=== PATIENT | female | born 1990 | race Caucasian/White ===

== ENCOUNTER 2020-08-06 08:36 | Inpatient (IN) ==
[~2020-08-06 08:36] MED LIST: CEFAZOLIN 2,000 MG in SYRINGE 0 ML IV SCH; CEFAZOLIN 2000MG 2,000 MG/15 ML SYR IV SCH; CITRIC ACID/SODIUM CITRATE 15 ML UDC PO SCH; LACTATED RINGER'S 1,000 ML IV SCH
[2020-08-06] MEDS ORDERED: fentaNYL citrate 100 MCG/2 ML VIAL ONE (09:00)
[2020-08-06] MEDS ORDERED: ONDANSETRON INJ 2 MG/ML 2 ML VIAL ONE (09:00)
[2020-08-06] MEDS ORDERED: MoRPHine SULFATE PF 1 MG/ML 10 ML AMP/VIAL ONE (09:00)
[2020-08-06] MEDS ORDERED: LACTATED RINGER'S 1,000 ML IV SCH ×3 (09:00→12:42)
[2020-08-06] MEDS ORDERED: PHENYLEPHRINE 100MCG/ML 5ML SYR ONE (09:00)
[2020-08-06] MEDS ORDERED: OXYTOCIN 10 UNITS/ML VIAL ONE (09:00)
[2020-08-06 09:24] LABS: Basophils # (auto) 0.01 K/uL (0-0.2); Basophils % (auto) 0.2 %; Eosinophils # (auto) 0.09 K/uL (0-0.5); Eosinophils % (auto) 1.6 %; Hematocrit (blood only) 33.9 % (37-47); Hemoglobin 11.6 g/dL (12.0-16.0); Immature Granulocytes # (auto) 0.02 K/uL (0.00-0.02); Immature Granulocytes % (auto) 0.4 %; Lymphocytes # (auto) 1.35 K/uL (1.2-3.4); Lymphocytes % (auto) 24.2 %; Mean Corpuscular Hemoglobin 32.5 pg (25-34); Mean Platelet Volume 10.8 fL (7.4-10.4); Monocytes % (auto) 7.2 %; Neutrophils # (auto) 3.71 K/uL (1.4-6.5); Neutrophils % (auto) 66.4 %; Platelet Count 160 K/uL (130-400); RDW Coefficient of Variation 13.3 % (11.5-14.5); RDW Standard Deviation 46.5 fL (36.4-46.3); Red Blood Count 3.57 M/uL (4.2-5.4); White Blood Count 5.58 K/uL (4.8-10.8)
--- NOTE | 2020-08-06 09:24 | Anesthesiology Consultation ---
Date of Service August 06, 2020 Assessment & Plan (1) Encounter for pre-operative examination: Chart Review Chart Review: Acceptable Risk for Surgery and Patient NOT seen in Pre Admission Testing Consults Requested none History Surgery Operation Date: 08/06/20 10:30 Proposed Procedures p Section - Bj Curtis MD, FACOG Height/Weight Height: 5 ft 11 in Weight: 63.957 kg Allergies Allergy/AdvReac Type Severity Reaction Status Date / Time No Known Allergies Allergy Verified 08/03/20 09:39 Medications Home Medications Medication Instructions Recorded Confirmed Last Taken prenat.vits,manpreet,nar-jyys-bashc 1 tab PO QAM 12/30/19 08/06/20 08/05/20 08:00 breast pump #1 ea 07/19/20 08/03/20 Unknown Past Medical History Medical History Anemia hx of Exercise / Class Metabolic Activity II 4-5 Yardwork/Stairs/Walk up hill Past Family History Family History Grandmother (Maternal) Diabetes Grandfather (Paternal) Breast cancer Colorectal cancer Aunt Breast cancer Uncle Diabetes Other No family history of adverse response to anesthesia Past Surgical History Surgical History No history of previous surgery Past Anesthesia History No Hx of Anesthesia Complications and No Family Hx of Anesthesia Complications History of PONV No Hx of PONV and No Hx of Motion Sickness Social History Smoking Status: Never smoker Do You Dip or Chew Tobacco: No Hx Alcohol Use: Yes (drank PRIOR to , none during ) Alcohol type: beer, wine and hard liquor alcohol intake frequency: a few times a week Alcohol Intake Frequency Comment: drank prior to Hx Substance Use: No substance use type: does not use Physical Exam Vital Signs Last Vital Signs Pulse 62 08/06/20 08:45 BP 117/77 08/06/20 08:45 Testing Laboratory Results 08/06/20 08:58
[2020-08-06 09:36] LABS: Mean Corpuscular Hgb Conc 34.2 g/dL (32-36)
[2020-08-06 09:49] LABS: Protein Creatinine Ratio Urine 0.2 (0-0.2); Total Protein Urine Random 16.1 mg/dl (0-11.9)
--- NOTE | 2020-08-06 10:51 | History & Physical Bridge Note ---
Date of Service August 06, 2020 History & Physical Bridge Note I have examined the patient, reviewed the History & Physical and in the interval since the performance of the History & Physical I have noted the following changes of clinical significance: no changes noted
--- NOTE | 2020-08-06 10:56 | Obstetrical Progress Note ---
Date of Service August 06, 2020 Assessment & Plan Admission and Anticipated Discharge Date Admission Date: August 06, 2020 Subjective Patient confirmed breech position on bedside ultrasound in the morning of surgery Results & Data ([facility]) Vital Signs (Past 12 Hours) Vital Signs Temp Pulse Pulse Resp BP BP 08/06/20 10:10 64 118/75 08/06/20 10:08 62 117/76 08/06/20 10:06 59 L 115/76 08/06/20 10:04 61 120/76 08/06/20 10:02 63 120/84 08/06/20 10:00 59 L 118/78 08/06/20 09:58 58 L 114/74 08/06/20 09:56 64 115/75 08/06/20 09:37 97.9 F 20 08/06/20 09:28 97.9 F 62 20 117/77 08/06/20 08:45 62 117/77 PG Care Time/CCT Total # of Minutes Spent Total Time Spent with Patient: Total time spent is greater than 50% in coordination of care (as documented) at patient's floor/unit and/or counseling patient: Coding Level of Care Code None
[2020-08-06] MEDS ORDERED: NALOXONE HCL 0.4 MG/1 ML VIAL/CARP IV PRN (11:31)
[2020-08-06] MEDS ORDERED: LACTATED RINGER'S 500 ML IV PRN (11:31)
[2020-08-06] MEDS ORDERED: MoRPHine SULFATE 2 MG/ML CARP IV PRN (11:31)
[2020-08-06] MEDS ORDERED: NALOXONE HCL 0.08 MG in SYRINGE 1.8 ML IV PRN (11:31)
[2020-08-06] MEDS ORDERED: HYDROmorphone INJ 0.5 MG/0.5 ML SYR IV PRN (11:31)
[2020-08-06] MEDS ORDERED: NALOXONE HCL 1 MG in SODIUM CHLORIDE 0.9% 1000ML 1,000 ML IV PRN (11:31)
[2020-08-06] MEDS ORDERED: ONDANSETRON INJ 2 MG/ML 2 ML VIAL IV PRN (11:31)
[2020-08-06] MEDS ORDERED: ePHEDrine sulfate 50 MG/ML AMP IV PRN (11:31)
[2020-08-06] MEDS ORDERED: KETOROLAC 30 MG/ML VIAL IV PRN (11:31)
[2020-08-06] MEDS ORDERED: MoRPHine SULFATE PF 1 MG/ML 10 ML AMP/VIAL INT SPINAL ONE (11:31)
[2020-08-06] MEDS ORDERED: DiphenhydrAMINE HCL 50 MG/ML VIAL IV PRN (11:31)
[2020-08-06] MEDS ORDERED: NO NARCOTICS OR SEDATIVES SCH (11:45)
[2020-08-06] MEDS ORDERED: SODIUM CHLORIDE 0.9% 1000ML 1,000 ML IV SCH (11:45)
[2020-08-06] MEDS ORDERED: DC INTRASPINAL MORPHINE SCH (11:45)
--- NOTE | 2020-08-06 12:22 | Operative Report ---
PG Post Operative Report Pre & Post Diagnosis Operation Date: 08/06/20 10:30 Pre-Op Diagnosis: Primary Section for Breech Presentation Term Post-Op Diagnosis: Same as Preop Primary Section for breech presentation at 1141 for a viable baby girl under services of Dr Curtis. I identified the patient and participated in the time-out.: Yes Procedure Operation Date: 08/06/20 10:30 Actual Procedures p Primary Section for breech presentation - Bj Curtis MD, FACOG Surgeon Bj Curtis MD, FACOG Cigar Packer And Sorter Dr. Dickson Estimated Blood Loss 600 Findings Consistent with Post-Op Diagnosis Specimens cord gases and blood Description of Procedure Regional anesthetic was given by anesthesia patient had a Garcia catheter inserted by nursing patient was prepped and draped in supine position with a leftward tilt preoperative antibiotics were given timeout performed Pickups with teeth were used to test the skin site and it was found adequate for incision scalpel used to make a Pfannenstiel incision cutting down through subcutaneous fat through the fascia fascia was then dissected laterally with the curved Posada's fascia was released superiorly and inferiorly from the rectus muscles with the curved Posada scissors, rectus muscle split peritoneal cavity entered in a superior location. Opening enlarged to allow exposure bladder retractor placed Metzenbaums used to dissect away the bladder flap low segment transverse incision made on the uterus with scalpel entry was done bluntly with the polyethylene bag machine operator's finger hysterotomy incision extended with the polyethylene bag machine operator's finger in the usual fashion baby was delivered baby was then javi breech position was able to flex the hips and elevate the baby out of the pelvis with the help from the library circulation assistant pressing on the fundus back was then turned to anterior baby was gently pulled with a moist lap sponge both legs were out and arms were swept towards the chest and then baby was delivered without any excessive extension of the neck without excessive force live vigorous infant cord clamped and cut cord gases obtained cord blood obtained placenta removed manually within ensured all placenta removed with a moist lap sponge uterus exteriorized IV Pitocin had been started by anesthesia and uterine tone improved. The uterus was closed in 2 layers first layer and 0 Monocryl running locked second layer 0 Monocryl nonlocked after generous irrigation and suction of the cul-de-sac and bladder flap regions hemostasis was excellent uterus was placed back in the peritoneal cavity and hemostasis was excellent rectus muscles were inspected and found to be dry fascia closed with 0 Vicryl subcutaneous fat closed with 3-0 Vicryl prior to this subcutaneous fat was irrigated skin closed with 4-0 subcuticular Monocryl incision Steri-Stripped urine was clear at the end of the procedure Uterus was normal there was no septum no bicornuate uterus adnexa were normal I attest to the content of the Intraoperative Record and any orders documented therein. Any exceptions are noted below. Procedure Pre-op/Post-op diagnoses: Pre-Op/Post-Op Diagnoses Operation Date: 08/06/20 10:30 Pre-Op Diagnosis: Primary Section for Breech Presentation Term Post-Op Diagnosis: Same as Preop Primary Section for breech presentation at 1141 for a viable baby girl under services of Dr Curtis. Procedure: Procedures Operation Date: 08/06/20 10:30 Actual Procedures Side Surgeon p Primary Section for breech presentation Bj Curtis MD, FACOG
--- NOTE | 2020-08-06 12:28 | Anesthesiology Progress Note ---
Date of Service August 06, 2020 Anesthesia Post Procedure Vital Signs Vital Signs: Temp Pulse Pulse Resp BP BP Pulse Ox 08/06/20 12:25 53 L 97 08/06/20 12:24 50 L 123/79 08/06/20 11:01 67 117/78 08/06/20 10:10 64 118/75 08/06/20 10:08 62 117/76 08/06/20 10:06 59 L 115/76 08/06/20 10:04 61 120/76 08/06/20 10:02 63 120/84 08/06/20 10:00 59 L 118/78 08/06/20 09:58 58 L 114/74 08/06/20 09:56 64 115/75 08/06/20 09:37 36.6 C 20 08/06/20 09:28 36.6 C 62 20 117/77 08/06/20 08:45 62 117/77 Transfer of Care Handoff Completed per policy Notes Mental Status: alert / awake / arousable and participated in evaluation Patient Amnestic to Procedure: No Nausea / Vomiting: adequately controlled Pain: adequately controlled Airway Patency, RR, SpO2: stable & adequate BP & HR: stable & adequate Hydration State: stable & adequate Neuraxial Anesthesia: was administered and sensory block is resolving Anesthetic Complications: no major complications apparent and Pt Satisfied with anesthetic care
[2020-08-06] MEDS ORDERED: BENZOCAINE 20% AER SPR 82.5 GM CAN EXT PRN (12:42)
[2020-08-06] MEDS ORDERED: SENNA 8.6 MG TAB PO PRN (12:42)
[2020-08-06] MEDS ORDERED: DIPHTHERIA/TETANUS/PERTUSSIS 0.5 ML SYR/VIAL IM ONE (12:42)
[2020-08-06] MEDS ORDERED: MAGNESIUM HYDROXIDE SUSP 30 ML UDC PO PRN (12:42)
[2020-08-06] MEDS ORDERED: SUPERCREAM 0.870% 15 GM JAR EXT PRN (12:42)
[2020-08-06] MEDS ORDERED: HYDROCORTISONE ACETATE 25 MG SUPP PR PRN (12:42)
[2020-08-06] MEDS: OXYTOCIN 20 UNITS in LACTATED RINGER'S 1,000 ML IV SCH ×2 (14:35→22:48)
[2020-08-06] MEDS: SIMETHICONE 80 MG CHEW PO SCH ×3 (17:51→21:20)
[2020-08-06] MEDS: DOCUSATE SODIUM 100 MG CAP PO SCH (21:20)
[2020-08-06] MEDS: KETOROLAC 30 MG/ML VIAL IV PRN (22:13)
[2020-08-07] MEDS: KETOROLAC 30 MG/ML VIAL IV PRN (05:15)
[2020-08-07] MEDS ORDERED: DiphenhydrAMINE HCL 50 MG/ML VIAL IV PRN (05:33)
[2020-08-07] MEDS ORDERED: OXYCODONE/ACETAMINOPHEN 5mg/325mg TAB PO PRN (05:33)
[2020-08-07] MEDS ORDERED: KETOROLAC 30 MG/ML VIAL IV PRN (05:33)
[2020-08-07] MEDS ORDERED: ONDANSETRON INJ 2 MG/ML 2 ML VIAL IV PRN (05:33)
[2020-08-07] MEDS ORDERED: MEPERIDINE HCL 50 MG/ML CARP IV PRN (05:33)
[2020-08-07] MEDS ORDERED: PROMETHAZINE HCL 25 MG in SODIUM CHLORIDE 0.9% 50 ML IV PRN (05:33)
--- NOTE | 2020-08-07 06:28 | Obstetrical Progress Note ---
Date of Service <Roman Ozuna MD - Last Filed: 08/07/20 07:43> August 07, 2020 Assessment & Plan <Roman Ozuna MD - Last Filed: 08/07/20 07:43> (1) S/P : Khushi is a 30 y/o female who is POD #1 following primary delivery at 39 weeks for breech positioning - Feels well today. Eating well, voiding well, ambulating well. - Pain well controlled with ibuprofen 600mg Q4H PRN. - Routine post-op care -- Garcia removed yesterday, today promote OOB, ambulation, diet progression as tolerated - After discharge will have [address] Curtis Subjective <Roman Ozuna MD - Last Filed: 08/07/20 07:43> Khushi is a 30 y/o female who is POD #1 following primary delivery at 39 weeks for breech positioning. She reports feeling well overall this morning. Endorse abdominal cramping with pain well managed on analgesics. Garcia removed earlier today -- has not yet been up to void. Tolerating meals overnight. Planning on ambulating today. Not yet passing gas or BMs. Has some persistent lochia with some improvement this morning. Breast feeding without difficulty. Review of Systems Denies fever, chills, sweats Denies shortness of breath, difficulty breathing, chest pain, palpitations, chest pressure. Denies breast pain. Denies dysuria. Denies headache or changes in vision. Physical Exam <Roman Ozuna MD - Last Filed: 08/07/20 07:43> General: Alert, oriented. No acute distress. Cardiac: Regular rate and rhythm, no murmurs/rubs/gallops. Respiratory: Clear to auscultation bilaterally a/p, no wheezes/rales/rhonchi. No increased work of breathing. Symmetrical chest rise. No respiratory distress. Abdomen: Soft, nontender, nondistended. Bowel sounds present. Uterus: Uterine fundus firm, palpable 2 cm below umbilicus. Surgical scar clean and healing well. Lower Extremities: No lower extremity edema or swelling. No deep calf pain. Clark's negative bilaterally. Results & Data ([facility]) <Roman Ozuna MD - Last Filed: 08/07/20 07:43> Vital Signs (Past 12 Hours) Vital Signs Temp Pulse Resp BP Pulse Ox 08/07/20 05:20 16 98 08/07/20 04:35 36.5 C 50 L 18 113/73 96 08/07/20 03:20 18 97 08/07/20 02:25 16 97 08/07/20 01:40 16 97 08/07/20 00:05 36.5 C 52 L 16 115/75 96 08/06/20 23:05 16 96 08/06/20 22:20 20 97 08/06/20 21:20 20 96 08/06/20 20:20 20 98 08/06/20 19:45 36.7 C 58 L 20 107/63 97 08/06/20 18:50 20 97 <Bj Curtis MD, FACOG - Last Filed: 08/07/20 07:53> Co-Signing Physician Notes Resident Physician Supervision Note: I was present with Dr. Ozuna during the history and exam. I discussed the case with the resident and agree with the findings and plan as documented in the note. Any exceptions or clarifications are listed here: [None] Documented By: Bj Curtis MD, FACOG Resident Activity Tracking <Roman Ozuna MD - Last Filed: 08/07/20 07:43> Resident Involvement: Resident Care Provided Care Provided: Adult [facility] Medicine and OB Delivery
[2020-08-07 07:27] LABS: Basophils # (auto) 0.01 K/uL (0-0.2); Basophils % (auto) 0.1 %; Eosinophils # (auto) 0.06 K/uL (0-0.5); Eosinophils % (auto) 0.7 %; Hemoglobin 10.7 g/dL (12.0-16.0); Immature Granulocytes # (auto) 0.02 K/uL (0.00-0.02); Immature Granulocytes % (auto) 0.2 %; Lymphocytes # (auto) 0.79 K/uL (1.2-3.4); Lymphocytes % (auto) 9.5 %; Mean Corpuscular Hemoglobin 32.5 pg (25-34); Mean Corpuscular Hgb Conc 34.5 g/dL (32-36); Mean Corpuscular Volume 94.2 fL (80-100); Mean Platelet Volume 10.7 fL (7.4-10.4); Monocytes # (auto) 0.53 K/uL (0.11-0.59); Monocytes % (auto) 6.4 %; Neutrophils % (auto) 83.1 %; Platelet Count 142 K/uL (130-400); RDW Coefficient of Variation 13.2 % (11.5-14.5); RDW Standard Deviation 45.4 fL (36.4-46.3); Red Blood Count 3.29 M/uL (4.2-5.4); White Blood Count 8.31 K/uL (4.8-10.8)
[2020-08-07] MEDS: PRENATAL VITAMIN 1 TAB PO SCH (08:15)
[2020-08-07] MEDS: DOCUSATE SODIUM 100 MG CAP PO SCH ×2 (08:15→20:57)
[2020-08-07] MEDS: SIMETHICONE 80 MG CHEW PO SCH ×3 (08:16→20:57)
[2020-08-07] MEDS: FERROUS SULFATE 325 MG TAB PO SCH (08:16)
[2020-08-07] MEDS: IBUPROFEN 600 MG TAB PO PRN ×2 (18:32→20:56)
[2020-08-07] MEDS ORDERED: bisacodyL 5 MG TABEC PO SCH (20:00)
[2020-08-08 06:13] LABS: Hematocrit (blood only) 29.6 % (37-47); Hemoglobin 10.1 g/dL (12.0-16.0)
--- NOTE | 2020-08-08 06:34 | Obstetrical Progress Note ---
Date of Service <Roman Ozuna MD - Last Filed: 08/08/20 06:34> August 08, 2020 Assessment & Plan <Roman Ozuna MD - Last Filed: 08/08/20 06:34> (1) S/P : Khushi is a 30 y/o female who is POD #2 following primary delivery at 39 weeks for breech positioning - Feels well today. Eating well, voiding well, ambulating well. - Pain well controlled with Percocet and ibuprofen 600mg Q4H PRN -- encouraged use of heating pads and abdominal binders PRN - Routine post-op care -- continue to promote OOB and ambulation - After discharge will have [address] Curtsi Subjective <Roman Ozuna MD - Last Filed: 08/08/20 06:34> Khushi is a 30 y/o female who is POD #2 following primary for breech positioning at 39 weeks. She reports feeling well overall this morning. Continues to endorse abdominal cramping with associated pain that is well managed on analgesics (utilized Percocet x 1 last night). Voiding without di fficulty. Tolerating meals overnight and able to ambulate some. Endorses passing gas but not yet bowel movements. Has some persistent lochia with some improvement this morning. Breast feeding has continued to get better, but still having some difficulty. Review of Systems Denies fever, chills, sweats Denies shortness of breath, difficulty breathing, chest pain, palpitations, chest pressure. Denies breast pain. Denies dysuria. Denies headache or changes in vision. Physical Exam <Roman Ozuna MD - Last Filed: 08/08/20 06:34> General: Alert, oriented. No acute distress. Cardiac: Regular rate and rhythm, no murmurs/rubs/gallops. Respiratory: Clear to auscultation bilaterally a/p, no wheezes/rales/rhonchi. No increased work of breathing. Symmetrical chest rise. No respiratory distress. Abdomen: Soft, nontender, nondistended. Bowel sounds present. Uterus: Uterine fundus firm, palpable 2 cm below umbilicus. Surgical scar clean and healing well. Lower Extremities: No lower extremity edema or swelling. No deep calf pain. Clark's negative bilaterally. Results & Data ([facility]) <Roman Ozuna MD - Last Filed: 08/08/20 06:34> Vital Signs (Past 12 Hours) Vital Signs Temp Pulse Resp BP Pulse Ox 08/07/20 23:20 36.5 C 65 16 120/77 97 08/07/20 19:30 36.7 C 71 16 117/75 95 <Betty Sebastian DO - Last Filed: 08/08/20 07:59> Co-Signing Physician Notes Resident Physician Supervision Note: I was present with Dr. Ozuna during the history and exam. I discussed the case with the resident and agree with the findings and plan as documented in the note. Any exceptions or clarifications are listed here: POD#2 doing well. DC instructions reviewed, Plan for DC home today likely. Documented By: Betty Sebastian DO Resident Activity Tracking <Roman Ozuna MD - Last Filed: 08/08/20 06:34> Resident Involvement: Resident Care Provided Care Provided: Adult Hospital Medicine and OB Delivery
[2020-08-08] MEDS: FERROUS SULFATE 325 MG TAB PO SCH (08:38)
[2020-08-08] MEDS: IBUPROFEN 600 MG TAB PO PRN ×3 (08:38→21:39)
[2020-08-08] MEDS: DOCUSATE SODIUM 100 MG CAP PO SCH ×2 (08:38→21:39)
[2020-08-08] MEDS: PRENATAL VITAMIN 1 TAB PO SCH (08:38)
[2020-08-08] MEDS: SIMETHICONE 80 MG CHEW PO SCH ×4 (08:39→21:39)
[2020-08-08] MEDS ORDERED: bisacodyL 10 MG SUPP PR PRN (12:18)
[2020-08-09] MEDS: IBUPROFEN 600 MG TAB PO PRN ×2 (03:25→08:43)
--- NOTE | 2020-08-09 07:24 | Obstetrical Progress Note ---
Date of Service <Roman Ozuna MD - Last Filed: 08/09/20 07:25> August 09, 2020 Assessment & Plan <Roman Ozuna MD - Last Filed: 08/09/20 07:25> (1) S/P : Khushi is a 30 y/o female who is POD #3 following primary delivery at 39 weeks for breech positioning - Feels well today. Eating well, voiding well, ambulating well. - Pain well controlled with Percocet and ibuprofen 600mg Q4H PRN -- encouraged use of heating pads and abdominal binders PRN - Routine post-op care -- continue to promote OOB and ambulation - After discharge will have [address] Kirsten Odonnell for d/c from obstetrics standpoint -- will await recommendations from pediatrics regarding baby's feeding and d/c plan Subjective <Roman Ozuna MD - Last Filed: 08/09/20 07:25> Khushi is a 30 y/o female who is POD #3 following primary c/s for breech positioning at 39 weeks. She reports feeling well overall this morning. Endorses mild abdominal cramping that is well managed on analgesics. Voiding without difficulty. Tolerating meals well and able to ambulate. Endorses passing gas but not yet bowel movement. Has some persistent lochia with some improvement this morning. Breast feeding with formula augmentation with regular aid from pediatrics. Does not some problems with latching over the last two days, but has gotten better. Review of Systems Denies fever, chills, sweats Denies shortness of breath, difficulty breathing, chest pain, palpitations, chest pressure. Denies breast pain. Denies dysuria. Denies headache or changes in vision. Physical Exam <Roman Ozuna MD - Last Filed: 08/09/20 07:25> General: Alert, oriented. No acute distress. Cardiac: Regular rate and rhythm, no murmurs/rubs/gallops. Respiratory: Clear to auscultation bilaterally a/p, no wheezes/rales/rhonchi. No increased work of breathing. Symmetrical chest rise. No respiratory distress. Abdomen: Soft, nontender, nondistended. Bowel sounds present. Uterus: Uterine fundus firm, palpable 4 cm below umbilicus. Surgical scar clean and healing well. Lower Extremities: No lower extremity edema or swelling. No deep calf pain. Clark's negative bilaterally. Results & Data ([facility]) <Roman Ozuna MD - Last Filed: 08/09/20 07:25> Vital Signs (Past 12 Hours) Vital Signs Temp Pulse Resp BP Pulse Ox 08/08/20 23:30 36.7 C 58 L 16 114/74 98 08/08/20 19:55 36.5 C 67 18 125/84 100 <Criselda Teague MD, FACOG - Last Filed: 08/09/20 07:30> Co-Signing Physician Notes Resident Physician Supervision Note: I was present with Dr. Ozuna during the history and exam. I discussed the case with the resident and agree with the findings and plan as documented in the note. Any exceptions or clarifications are listed here: pt doing well, trying to breastfeed. eating, voiding, ambulating without problem. . pain well controlled. af vss, abd soft ff 2 down, nt, incision c/d/i, ext nt calves. pod #4 s/p c/s will d/c home, instructions reviewed. f/u 6wk pp check. breast, rh neg, baby rh neg. ri. Documented By: Criselda Teague MD, FACOG Resident Activity Tracking <Roman Ozuna MD - Last Filed: 08/09/20 07:25> Resident Involvement: Resident Care Provided Care Provided: Adult Hospital Medicine and OB Delivery
[2020-08-09] MEDS: PRENATAL VITAMIN 1 TAB PO SCH (08:42)
[2020-08-09] MEDS: SIMETHICONE 80 MG CHEW PO SCH (08:42)
[2020-08-09] MEDS: DOCUSATE SODIUM 100 MG CAP PO SCH (08:42)
[2020-08-09] MEDS: FERROUS SULFATE 325 MG TAB PO SCH (08:42)
--- NOTE | 2020-08-14 07:43 | Discharge Summary ---
Date of Service August 14, 2020 Admission HPI Per Admitting Provider admitted for scheduled C/S for breech presentation Admission Exam (Per Admitting) Constitutional WD/WN, vitals as above Respiratory normal respiratory effort, lungs clear to auscultation Gastrointestinal (Abdomen) normal bowel sounds, soft, nontender, no hepatosplenomegaly Discharge Data Consultations 08/06/20 08:56 Consult Anesthesiology Stat Procedures Performed Operation Date: 08/06/20 10:30 Actual Procedures p Primary Section for breech presentation - Bj Curtis MD, FACOG Hospital Course (1) S/P : Postoperative from section patient meets discharge criteria as she is ambulating well tolerating an oral diet has minimal bleeding and no extremity pain. Discharge instructions were reviewed and prescriptions were sent to her pharmacy of choice patient advised to call with any concerns and follow-up in the office discussed Supervising Physician Co-Signing Physician Notes Resident Physician Supervision Note: I was present with Dr. Ozuna during the history and exam. I discussed the case with the resident and agree with the findings and plan as documented in the note. Any exceptions or clarifications are listed here: pt doing well, trying to breastfeed. eating, voiding, ambulating without problem. . pain well controlled. af vss, abd soft ff 2 down, nt, incision c/d/i, ext nt calves. pod #4 s/p c/s will d/c home, instructions reviewed. f/u 6wk pp check. breast, rh neg, baby rh neg. ri. Documented By: Criselda Teague MD, FACOG Coding Level of Care Code None Diagnoses S/P [id number]
== END 2020-08-09 11:45 | disposition home or self-care (01) | DRG 788 ==
LOC: 4S1 08:36 → EDSTATUS 08:50 → 4S2 15:24
DX: Z3A.39 39 weeks gestation of pregnancy; O32.1XX0 Maternal care for breech presentation, not applicable or unspecified; O99.02 Anemia complicating childbirth; Z37.0 Single live birth; D64.9 Anemia, unspecified; Z79.899 Other long term (current) drug therapy